=== PATIENT | male | born 1985 | race Asian ===

== ENCOUNTER 2019-02-19 12:14 | Emergency (ER) | payer OTHER ==
[2019-02-19 12:18] VITALS: BP 158/96; TEMP 97.7
[2019-02-19] MEDS ORDERED: NORCO 325 MG-51 TAB PO (12:47)
[2019-02-19] MEDS ORDERED: AMOXICILLIN 50500 MG PO (12:47)
[2019-02-19 13:25] VITALS: PULSE 69
== END 2019-02-19 13:25 | disposition home or self-care (01) ==
LOC: COL.ER 12:14
DX: K02.9 Dental caries, unspecified (principal)
CPT/HCPCS: J1885

== ENCOUNTER 2019-02-20 05:18 | Emergency (ER) | payer OTHER ==
[~2019-02-20 05:18] MED LIST: AMOXICILLIN 50500 MG PO; NORCO 325 MG-51 TAB PO
[2019-02-20 05:25] VITALS: BP 186/117; PULSE 54; TEMP 98
== END 2019-02-20 05:53 | disposition home or self-care (01) ==
LOC: COL.ER 05:18
DX: K02.9 Dental caries, unspecified (principal)

== ENCOUNTER 2019-04-16 14:23 | Emergency (ER) | payer OTHER ==
[~2019-04-16] VITALS: Ht 175.3 cm; Wt 76.4 kg
[2019-04-16 14:27] VITALS: TEMP 98.6
[2019-04-16 17:00] VITALS: BP 150/76; PULSE 51
== END 2019-04-16 17:00 | disposition home or self-care (01) ==
LOC: COL.ER 14:23
DX: S83.91XA Sprain of unspecified site of right knee, initial encounter (principal); X50.1XXA Overexertion from prolonged static or awkward postures, initial encounter; Y93.66 Activity, soccer
CPT/HCPCS: L1846

== ENCOUNTER 2019-05-07 22:32 | Emergency (ER) | payer OTHER ==
[2019-05-07 22:38] VITALS: BP 139/80; TEMP 98.3
[2019-05-07 23:38] LABS: BASO % 0.8 % (0.0-2.0); EOS # 0.2 (0.0-0.7); EOS % 3.5 % (0-4.0); GRAN # 1.8 (1.4-6.5); GRAN % 34.9 % (42.2-75.2); HEMATOCRIT 43.9 % (42.0-52.0); HEMOGLOBIN 14.2 g/dl (13.5-18.0); LYMPH # 2.7 (1.2-3.4); LYMPH % 53.1 % (20.0-51.0); MEAN CELL VOLUME 82 fl (80.0-100.0); MEAN CORPUSCULAR HEMOGLOBIN 27 pg (27.0-31.0); MEAN CORPUSCULAR HGB CONC 32 g/dl (33.0-37.0); MEAN PLATELET VOLUME 11.1 fl (7.4-10.4); MONO # 0.4 (0.1-0.6); MONO % 7.5 % (1.7-9.3); PLATELET COUNT 223 K/mm3 (130-400); RED BLOOD COUNT 5.34 M/mm3 (4.20-5.60); REDCELL DISTRIBUTION WIDTH-CV 12.8 % (11.5-14.5)
[2019-05-08 00:01] LABS: ALANINE AMINOTRANSFERASE 27 U/L (21-72); ALBUMIN 4.5 gm/dL (3.5-5.0); ALKALINE PHOSPHATASE 71 U/L (50-136); ANION GAP 11 mmol/L (7-16); AST,SGOT 30 U/L (15-37); BILIRUBIN,TOTAL 0.7 mg/dL (0.0-1.0); BLOOD UREA NITROGEN 12 mg/dL (9-20); CALCIUM 8.6 mg/dL (8.4-10.2); CARBON DIOXIDE 30 mmol/L (22-30); CHLORIDE 103 mmol/L (98-107); CREATININE, serum 0.89 (0.66-1.25); GLUCOSE 106 mg/dL (74-106); POTASSIUM 3.8 mmol/L (3.4-5.0); SODIUM 144 mmol/L (137-145)
[2019-05-08 00:02] LABS: C-REACTIVE PROTEIN < 0.5 mg/dL (0.0-0.9)
[2019-05-08 00:33] VITALS: PULSE 60
== END 2019-05-08 00:34 | disposition home or self-care (01) ==
LOC: COL.ER 22:32
PROVIDERS: Nurse Practitioner
DX: R51 Headache (principal)